=== PATIENT | female | born 1975 | race Caucasian/White ===

== ENCOUNTER 2016-07-07 09:10 | Emergency (ER) | payer BC, OTHER ==
[~2016-07-07] VITALS: Ht 167.6 cm; Wt 62.0 kg
[2016-07-07 09:16] VITALS: BP 124/70
[2016-07-07 10:28] LABS: ALANINE AMINOTRANSFERASE 24 IU/L (13-61); INDEX LIPEMIC 1 (1-3)
[2016-07-07 13:30] LABS: HEPATITIS B SURFACE ANTIGEN NEGATIVE
[2016-07-07 13:59] LABS: HEPATITIS C VIR.AB 0.13 INDEXVAL (0.00-0.80)
== END 2016-07-07 11:00 | disposition home or self-care (01) ==
LOC: ER 09:11
DX: Z77.21 Contact with and (suspected) exposure to potentially hazardous body fluids (principal); Z90.89 Acquired absence of other organs
CPT/HCPCS: 36415; 84460; 99283

== ENCOUNTER → 2017-06-28 | Outpatient (CLI) | payer BC, OTHER ==
[2017-06-28 09:17] LABS: BASOPHILS % 0.7 % (0.0-2.0); CLARITY URINE CLEAR (CLEAR); COLOR URINE YELLOW (YELLOW); EOSINOPHILS % 1.6 % (0.0-5.0); HEMATOCRIT. 44.4 % (36.0-48.0); KETONES URINE NEGATIVE (NEGATIVE); LEUKOCYTE ESTERASE URINE 1+ (NEGATIVE); LYMPHOCYTES % 27.2 % (20.0-50.0); MEAN CORPUSCULAR HEMOGLOBIN 31.7 pg (28.0-32.0); MEAN CORPUSCULAR VOLUME 93.9 fL (81.0-99.0); MEAN PLATELET VOLUME 8.7 fl (7.4-10.4); MONOCYTES % 8.6 % (2.0-8.0); NEUTROPHILS % 61.9 % (40.0-76.0); NITRITE URINE NEGATIVE (NEGATIVE); OCCULT BLOOD URINE 1+ (NEGATIVE); PLATELET 263 x1000/uL (130-400); PROTEIN URINE NEGATIVE (NEGATIVE); RED BLOOD CELL COUNT 4.72 mill/uL (4.2-5.4); RED CELL DISTRIBUTION WIDTH 13.4 % (11.6-14.6); SPECIFIC GRAVITY URINE 1.009 (1.005-1.030); UROBILINOGEN URINE 0.2 E.U./dL (0.2-1.0)
[2017-06-28 09:41] LABS: CHLORIDE 105 mEq/L (98-107)
[2017-06-28 09:49] LABS: LDL CHOLESTEROL 55 mg/dL (5-100); TOTAL IRON BINDING CAPACITY 369 ug/dL (250-450)
[2017-06-28 09:50] LABS: HDL CHOLESTEROL 91 mg/dL (40-59)
[2017-06-28 10:16] LABS: VITAMIN B12 SERUM 660 pg/mL (211-911)
== END | disposition home or self-care (01) ==
LOC: LAB 08:51
PROVIDERS: ATTEND Internal Medicine Geriatric Medicine
DX: Z00.01 Encounter for general adult medical examination with abnormal findings (principal); N39.0 Urinary tract infection, site not specified; R79.89 Other specified abnormal findings of blood chemistry
CPT/HCPCS: 36415; 80053; 80061; 81003; 82306; 82607; 83036; 83540; 83550; 84443; 85025; 86592; 87086

== ENCOUNTER 2017-07-24 07:12 | Day surgery (SDC) | payer BC ==
[~2017-07-24] VITALS: Ht 167.6 cm; Wt 63.5 kg
[2017-07-24 07:54] LABS: KETONES URINE NEGATIVE (NEGATIVE); LEUKOCYTE ESTERASE URINE 1+ (NEGATIVE); NITRITE URINE NEGATIVE (NEGATIVE); OCCULT BLOOD URINE 1+ (NEGATIVE); PH URINE 6.5 (4.5-8.0); PROTEIN URINE NEGATIVE (NEGATIVE); SPECIFIC GRAVITY URINE 1.011 (1.005-1.030); UROBILINOGEN URINE 0.2 E.U./dL (0.2-1.0)
[2017-07-24 07:56] LABS: CLARITY URINE CLEAR (CLEAR); COLOR URINE YELLOW (YELLOW)
[2017-07-24 07:57] LABS: UCG SCREEN NEGATIVE
[2017-07-24 08:01] LABS: INR 1.1; PARTIAL THROMBOPLASTIN TIME 28.7 sec (23.4-31.0); PROTHROMBIN TIME 11.3 sec (9.4-11.6)
[2017-07-24 08:18] LABS: BASOPHILS % 0.8 % (0.0-2.0); EOSINOPHILS % 1.7 % (0.0-5.0); HEMATOCRIT. 42.4 % (36.0-48.0); HEMOGLOBIN. 14.3 g/dL (12.0-16.0); LYMPHOCYTES % 25.3 % (20.0-50.0); MEAN CORPUSCULAR HEMOGLOBIN 31.4 pg (28.0-32.0); MEAN PLATELET VOLUME 8.9 fl (7.4-10.4); MONOCYTES % 10.6 % (2.0-8.0); NEUTROPHILS % 61.6 % (40.0-76.0); PLATELET 252 x1000/uL (130-400); RED BLOOD CELL COUNT 4.56 mill/uL (4.2-5.4)
[2017-07-24] MEDS ORDERED: ASCO125T PO (10:14)
[2017-07-24] MEDS ORDERED: CRAN450T10 PO (10:14)
[2017-07-24] MEDS ORDERED: [UNRECOGNIZED DRUG - CODE] MC (10:14)
[2017-07-24] MEDS ORDERED: MEPERIDINE HCL/PF 25MG/ML CPJ IV PRN (11:30)
[2017-07-24] MEDS ORDERED: MORPHINE SULFATE 2 MG/ML CPJ (NOT FOR IM USE) IV PRN (11:30)
== END 2017-07-24 13:10 | disposition home or self-care (01) ==
LOC: OR 07:12
PROVIDERS: ATTEND Obstetrics & Gynecology Obstetrics
DX: N84.0 Polyp of corpus uteri (principal); N84.1 Polyp of cervix uteri; N72 Inflammatory disease of cervix uteri; Z79.899 Other long term (current) drug therapy; N39.0 Urinary tract infection, site not specified
CPT/HCPCS: 36415; 58558; 81003; 81025; 85025; 85610; 85730; 88305; J0690; J1100; J2405; J3010; J3490; J7120; J2704

== ENCOUNTER → 2017-10-14 | Outpatient (CLI) | payer BC ==
[~2017-10-14] MED LIST: ASCO125T PO; CRAN450T10 PO; [UNRECOGNIZED DRUG - CODE] MC
[2017-10-14 16:38] LABS: CLARITY URINE CLEAR (CLEAR); COLOR URINE YELLOW (YELLOW); KETONES URINE NEGATIVE (NEGATIVE); LEUKOCYTE ESTERASE URINE NEGATIVE (NEGATIVE); NITRITE URINE NEGATIVE (NEGATIVE); OCCULT BLOOD URINE NEGATIVE (NEGATIVE); PH URINE 7.5 (4.5-8.0); PROTEIN URINE NEGATIVE (NEGATIVE); SPECIFIC GRAVITY URINE 1.008 (1.005-1.030); UROBILINOGEN URINE 0.2 E.U./dL (0.2-1.0)
== END | disposition home or self-care (01) ==
LOC: LAB 16:00
PROVIDERS: ATTEND Internal Medicine Geriatric Medicine
DX: N39.0 Urinary tract infection, site not specified (principal)
CPT/HCPCS: 81003; 87086

== ENCOUNTER → 2018-08-05 | Outpatient (CLI) | payer BC ==
[2018-08-05 11:09] LABS: CHLORIDE 107 mEq/L (98-107)
[2018-08-05 11:12] LABS: CLARITY URINE CLEAR (CLEAR); COLOR URINE YELLOW (YELLOW); KETONES URINE NEGATIVE (NEGATIVE); LEUKOCYTE ESTERASE URINE 3+ (NEGATIVE); NITRITE URINE NEGATIVE (NEGATIVE); OCCULT BLOOD URINE TRACE (NEGATIVE); PH URINE 7.5 (4.5-8.0); PROTEIN URINE NEGATIVE (NEGATIVE); UROBILINOGEN URINE 0.2 E.U./dL (0.2-1.0)
[2018-08-05 11:18] LABS: TOTAL IRON BINDING CAPACITY 270 ug/dL (250-450)
[2018-08-05 11:34] LABS: HEPATITIS B SURFACE AB 74.2 mIU/mL
[2018-08-05 11:42] LABS: VITAMIN B12 SERUM 673 pg/mL (211-911)
[2018-08-05 12:15] LABS: HEPATITIS A AB IGM NEGATIVE (NEGATIVE)
[2018-08-06 05:22] LABS: HBSAG SCREEN Negative (Negative); VITAMIN D 25-OH 29.5 ng/mL (30.0-100.0)
== END | disposition home or self-care (01) ==
LOC: LAB 10:23
PROVIDERS: ATTEND Internal Medicine Geriatric Medicine
DX: S91.339A Puncture wound without foreign body, unspecified foot, initial encounter (principal); N39.0 Urinary tract infection, site not specified; X58.XXXA Exposure to other specified factors, initial encounter; Y93.89 Activity, other specified; Y92.89 Other specified places as the place of occurrence of the external cause; Y99.8 Other external cause status
CPT/HCPCS: 36415; 82306; 82607; 83540; 83550; 84443; 86592; 86705; 86706; 86709; 86803; 87340

== ENCOUNTER → 2018-09-23 | Outpatient (CLI) | payer BC | END | disposition home or self-care (01) | LOC: US 09:43 | PROVIDERS: ATTEND Obstetrics & Gynecology Obstetrics | DX: N83.201 Unspecified ovarian cyst, right side (principal); D25.9 Leiomyoma of uterus, unspecified | CPT/HCPCS: 76830; 76856 ==

== ENCOUNTER → 2018-10-29 | Outpatient (CLI) | payer BC | END | disposition home or self-care (01) | LOC: US 10:44 | PROVIDERS: ATTEND Obstetrics & Gynecology Obstetrics | DX: D25.9 Leiomyoma of uterus, unspecified (principal); N83.201 Unspecified ovarian cyst, right side | CPT/HCPCS: 76830; 76856 ==

== ENCOUNTER 2018-10-31 12:38 | Emergency (ER) | payer BC ==
[~2018-10-31] VITALS: Ht 167.6 cm; Wt 64.0 kg
[2018-10-31] MEDS ORDERED: SODIUM CHLORIDE 0.9% 1,000 ML IV ONE (13:29)
[2018-10-31] MEDS ORDERED: METOCLOPRAMIDE HCL 10MG/2ML VIAL IV ONE (13:30)
[2018-10-31 14:41] LABS: CLARITY URINE CLEAR (CLEAR); COLOR URINE YELLOW (YELLOW); KETONES URINE NEGATIVE (NEGATIVE); LEUKOCYTE ESTERASE URINE NEGATIVE (NEGATIVE); NITRITE URINE NEGATIVE (NEGATIVE); OCCULT BLOOD URINE 1+ (NEGATIVE); PROTEIN URINE NEGATIVE (NEGATIVE); SPECIFIC GRAVITY URINE 1.012 (1.005-1.030); UROBILINOGEN URINE 0.2 E.U./dL (0.2-1.0)
[2018-10-31 14:43] LABS: BASOPHILS % 0.6 % (0.0-2.0); EOSINOPHILS % 0.9 % (0.0-5.0); HEMATOCRIT. 41.3 % (36.0-48.0); HEMOGLOBIN. 14.1 g/dL (12.0-16.0); LYMPHOCYTES % 18.6 % (20.0-50.0); MEAN CORPUSCULAR VOLUME 93.6 fL (81.0-99.0); MEAN PLATELET VOLUME 9.5 fl (7.4-10.4); MONOCYTES % 5.9 % (2.0-8.0); PLATELET 241 x1000/uL (130-400); RED BLOOD CELL COUNT 4.42 mill/uL (4.2-5.4); RED CELL DISTRIBUTION WIDTH 13.1 % (11.6-14.6)
[2018-10-31 14:47] LABS: CHLORIDE 107 mEq/L (98-107)
[2018-10-31 17:01] VITALS: BP 99/63
== END 2018-10-31 17:07 | disposition home or self-care (01) ==
LOC: ER 12:38
DX: R51 Headache (principal); R42 Dizziness and giddiness; Z90.49 Acquired absence of other specified parts of digestive tract
CPT/HCPCS: 36415; 70450; 80053; 81003; 81025; 85025; 96361; 96374; 99284; J2765; J7030